=== PATIENT | female | born 1975 | race Caucasian/White ===

== ENCOUNTER 2020-02-15 21:20 | Emergency (ER) | payer OTHER ==
[2020-02-15] MEDS ORDERED: ERYTHROMYCIN 0.5% OPH OINT 1 GM UNIT DOSE OS ONE (22:55)
[2020-02-15] MEDS ORDERED: CEPHALEXIN 500 MG CAPSULE PO ONE (22:55)
--- NOTE | 2020-02-15 23:05 | ER Document Report ---
ED Eye Complaint - General Chief Complaint: Eye Problem Stated Complaint: LEFT EYE ITCHING/PAIN/DRAINING Time Seen by Provider: 02/15/20 22:36 Notes: CHIEF COMPLAINT: Left eye redness and swelling HPI: 44-year-old female presenting with 2 days of swelling to the medial aspect of the left lower eyelid. Patient believed that she might of been developing a stye, went out in the sun yesterday and it became worse and more uncomfortable. She has noticed some swelling and redness now below the left eye. No visual change or loss. Attempted to call her eye doctor today but was unable to reach them. No fever ROS: See HPI - all other systems were reviewed and are otherwise negative Constitutional: no fever Eyes: no drainage, no blurred vision, positive eyelid swelling ENT: no runny nose, no sore throat Integumentary: + rash Allergy: no hives MEDICATIONS: I agree with the patient medications as charted by the RN. ALLERGIES: I agree with the allergies as charted by the RN. PAST MEDICAL HISTORY/PAST SURGICAL HISTORY: Reviewed and agree as charted by RN. SOCIAL HISTORY: Reviewed and agree as charted by RN. FAMILY HISTORY: No significant familial comorbid conditions directly related to patient complaint EXAM: Reviewed vital signs as charted by RN. CONSTITUTIONAL: Alert and oriented and responds appropriately to questions. Well-appearing; well-nourished HEAD: Normocephalic; atraumatic EYES: PERRL; Conjunctivae clear, sclerae non-icteric. There is swelling and erythema to the medial aspect of the left lower eyelid with a small punctate lesion suggesting a stye. There is some soft tissue swelling to the inferior left periorbital region with some erythema and mild tenderness on palpation no induration or fluctuance. No visible foreign body under the upper or lower lids. No hyphema. Funduscopic exam does not reveal evidence of disc edema or hemorrhage. ENT: normal nose; no rhinorrhea; moist mucous membranes; pharynx without lesions noted, no uvula edema or deviation, no tonsillar hypertrophy, phonation normal NECK: Supple without meningismus; non-tender; no cervical lymphadenopathy, no masses CARD: Capillary refill less than 3 seconds; symmetric distal pulses RESP: Normal chest excursion without splinting or tachypnea ABD/GI: non-distended BACK: The back appears normal EXT: Normal ROM in all joints; no cyanosis, no effusions, no edema SKIN: Normal color for age and race; warm; dry; good turgor NEURO: Moves all extremities equally; Motor and sensory function intact PSYCH: The patient's mood and manner are appropriate. Grooming and personal hygiene are appropriate. MDM: 44-year-old female with a left lower lid medial stye as well as left inferior periorbital cellulitis. Will place on Keflex, erythromycin ointment. She has an eye doctor in [facility] for follow-up. Return instructions discussed - Related Data Allergies/Adverse Reactions: No Known Allergies Allergy (Unverified 02/15/20 22:14) Home Medications: Vivance. Ibuprofen Past Medical History - Social History Smoking Status: Former Smoker Frequency of alcohol use: Social Drug Abuse: None Family History: Reviewed & Not Pertinent Patient has homicidal ideation: No Physical Exam - Vital signs Vitals: Temp Pulse Resp BP Pulse Ox 98.1 F 67 16 134/82 H 100 02/15/20 21:26 02/15/20 21:26 02/15/20 21:26 02/15/20 21:26 02/15/20 21:26 - HEENT Visual acuity- Right eye: 20/20 Visual acuity- Left eye: 20/20 Visual acuity- Both eyes: 20/20 Corrective lenses worn: Yes - glasses Course - Vital Signs Vital signs: Temp Pulse Resp BP Pulse Ox 98.1 F 67 16 134/82 H 100 02/15/20 22:14 02/15/20 21:26 02/15/20 21:26 02/15/20 21:26 02/15/20 21:26 Discharge - Discharge Clinical Impression: Periorbital cellulitis of left eye Hordeolum of left eye Qualifiers: Hordeolum type: externum Eyelid: lower Qualified Code(s): H00.015 - Hordeolum externum left lower eyelid Condition: Stable Disposition: HOME, SELF-CARE Additional Instructions: Warm compresses to the left eye as much as possible. Use the erythromycin ointment in the left eye as prescribed. Take the Keflex as prescribed. Follow- up with your eye doctor in the next 24 to 48 hours for recheck and reevaluation if you develop worsening redness or swelling around the left eye return to the emergency department for reevaluation Prescriptions: Erythromycin Base [Erythromycin Oph 1 Gm Oint Ud] 1 applic OS BID 5 Days #1 tube Cephalexin Monohydrate [Keflex 500 mg Capsule] 500 mg PO Q6H 7 Days #28 capsule
[2020-02-16 00:01] VITALS: BP 126/84
== END 2020-02-16 00:01 | disposition home or self-care (01) ==
LOC: ER 21:20
DX: L03.213 Periorbital cellulitis (principal); H00.015 Hordeolum externum left lower eyelid; R21 Rash and other nonspecific skin eruption
CPT/HCPCS: 99283